=== PATIENT | male | born 1980 | race Caucasian/White ===

== ENCOUNTER 2016-11-21 09:04 | Emergency (ER) | payer OTHER ==
--- NOTE | 2016-11-21 10:33 | UC ---
UC General HPI - HPI Summary HPI Summary: P tpresnts with c/o generalized body/joint aches/pains X 2 months. Pt has known history of RA. pt reports that he had sudden onset of gross hematuria last night that has since resolved. Pt has ahistory of kidney stones but denies low back pain or knowledge of passing a kidney stone recently. Pt denies any urinary symptoms of frequency or dysuris. Has a prior history of frequency and denies any worsening or improvement of this. Pt reports that he has lost 10lbs in the last of 6 weeks due to loss of appetite. Pt is requesting HIV testing denies risk to exposure. Denies known STD risk exposure. Pt reports poor dentition and states that "jaw in front of my ears is stiff and achy". Pt has not been managing his RA with Laboratory Specialist and has not seen a pCP since June 2016 - History of Current Complaint Stated Complaint: URINARY Time Seen by Provider: 11/21/16 09:50 Hx Obtained From: Patient Onset/Duration: Gradual Onset, Lasting Weeks - 8 Timing: Constant Onset Severity: Mild Current Severity: Moderate Associated Signs & Symptoms: Positive: Other - joint pain - Allergy/Home Medications Allergies/Adverse Reactions: Allergies Allergy/AdvReac Type Severity Reaction Status Date / Time Cephalexin [From Keflex] Allergy Severe FULL BODY Verified 11/21/16 09:54 RASH PMH/Surg Hx/FS Hx/Imm Hx Previously Healthy: No - RA, coarctation of aorta sx Cardiovascular History: Other - coarctation of aorta, sx repair Other Cardiovascular History: coarctation of aorta surgical repair Neurological History: Other Other Neurological History: RA - Surgical History Surgical History: Yes Surgery Procedure, Year, and Place: HEART SURGERY - Family History Known Family History: Positive: Cardiac Disease - Social History Alcohol Use: Rare Substance Use Type: Marijuana Smoking Status (MU): Light Every Day Tobacco Smoker Type: Cigarettes Amount Used/How Often: 1/2 PPD Household Exposure Type: Cigarettes Review of Systems Constitutional: Fatigue Skin: Negative Eyes: Negative ENT: Other - jaw discomfort and stiffness Respiratory: Negative Cardiovascular: Negative Gastrointestinal: Negative Genitourinary: Hematuria Motor: Decreased ROM Neurovascular: Negative Musculoskeletal: Arthralgia, Decreased ROM - generalized Neurological: Negative Psychological: Negative All Other Systems Reviewed And Are Negative: Yes Physical Exam Triage Information Reviewed: Yes Appearance: Ill-Appearing, Thin Vital Signs: Initial Vital Signs Temp 98.5 F 11/21/16 09:54 Pulse 68 11/21/16 09:54 Resp 18 11/21/16 09:54 BP 102/65 11/21/16 09:54 Pulse Ox 97 11/21/16 09:54 ENT Exam: Other ENT: Positive: Other: - TMJ stiffness Neck exam: Normal Respiratory Exam: Normal Cardiovascular: Positive: Murmur:Sys:Grade _?_/ - 5 Abdominal Exam: Normal Musculoskeletal Exam: Other Musculoskeletal: Positive: ROM Limited @ - generalized joints Neurological Exam: Normal Psychological Exam: Normal Skin: Positive: rashes - contact dermatitis Course/Dx - Course Course Of Treatment: Please follow up with your PCP, establish care with a Laboratory Specialist, a local PCP and establish care with a local dental care provider as soon as possible. It is important that you maintain continuity of care to ensure proper management of your pre-existing health conditions. Pt verbalized understanding and agreed to plan - Differential Dx - Multi-Symptom Differential Diagnoses: Urinary Tract Infection Provider Diagnoses: UTI. RA-flare. HIV self referral Discharge - Discharge Plan Condition: Stable Disposition: HOME Prescriptions: Sulfamethox/Trimethoprim DS* [Bactrim DS 800/160 TAB*] 1 tab PO Q12H #14 tab methylPREDNISolone TAB* [Medrol TAB*] 4 - 8 mg PO .SEE RONNELL #1 ronnell Patient Education Materials: Urinary Tract Infection in Men (ED), Arthralgia ( ED) Referrals: [facility] [Outside] Otf Rayo MD [Medical Doctor] - Cosme Guzman MD [Primary Care Provider] - Additional Instructions: Please follow up with your PCP, establish care with a Laboratory Specialist, a local PCP and establish care with a local dental care provider as soon as possible. It is important that you maintain continuity of care to ensure proper management of your pre-existing health conditions
[2016-11-21 10:36] VITALS: BP 102/65
== END 2016-11-21 10:54 | disposition home or self-care (01) ==
LOC: UCCORT 09:04
DX: N39.0 Urinary tract infection, site not specified (principal); R31.9 Hematuria, unspecified; M06.9 Rheumatoid arthritis, unspecified; Z11.4 Encounter for screening for human immunodeficiency virus [HIV]; Z87.442 Personal history of urinary calculi; Z88.1 Allergy status to other antibiotic agents; F17.210 Nicotine dependence, cigarettes, uncomplicated
CPT/HCPCS: 36415; 81003; 86703; 87086; 99202; G0463